=== PATIENT | female | born 1970 | race Two or more races ===

== ENCOUNTER 2017-07-13 13:23 | Emergency (ER) | payer MEDICAID ==
[~2017-07-13] VITALS: Ht 162.6 cm; Wt 60.0 kg
[2017-07-13] MEDS ORDERED: ONDANSETRON HCL 4MG/2ML VIAL IV STA (14:52)
[2017-07-13] MEDS ORDERED: KETOROLAC 30MG/ML VIAL IV STA (14:52)
[2017-07-13] MEDS ORDERED: FAMOTIDINE 20MG/2ML VIAL IV STA (14:52)
[2017-07-13] MEDS ORDERED: SODIUM CHLORIDE 0.9% 1,000 ML IV ONE (14:52)
[2017-07-13 15:25] LABS: BASOPHILS % 0.3 % (0.0-2.0); EOSINOPHILS % 0.1 % (0.0-5.0); HEMATOCRIT. 40.9 % (36.0-48.0); HEMOGLOBIN. 14.1 g/dL (12.0-16.0); LYMPHOCYTES % 13.1 % (20.0-50.0); MEAN CORPUSCULAR HEMOGLOBIN 32.1 pg (28.0-32.0); MEAN CORPUSCULAR VOLUME 92.8 fL (81.0-99.0); MEAN PLATELET VOLUME 9.3 fl (7.4-10.4); MONOCYTES % 4.1 % (2.0-8.0); NEUTROPHILS % 82.4 % (40.0-76.0); PLATELET 261 x1000/uL (130-400); RED BLOOD CELL COUNT 4.41 mill/uL (4.2-5.4); RED CELL DISTRIBUTION WIDTH 13.9 % (11.6-14.6)
[2017-07-13 15:29] LABS: CHLORIDE 103 mEq/L (98-107); INR 0.9; PROTHROMBIN TIME 9.8 sec (9.4-11.6)
[2017-07-13 15:30] LABS: HCG SCREEN NEGATIVE
[2017-07-13] MEDS ORDERED: ONDANSETRON HCL 4MG/2ML VIAL IV ONE (16:45)
[2017-07-13] MEDS ORDERED: ACETAMINOPHEN 325MG TABLET PO ONE (17:00)
[2017-07-13] MEDS ORDERED: MORPHINE SULFATE 4 MG/ML CPJ (NOT FOR IM USE) IV ONE (18:15)
[2017-07-13] MEDS ORDERED: METOCLOPRAMIDE HCL 10MG/2ML VIAL IV ONE (18:15)
[2017-07-13 18:46] VITALS: BP 118/55
[2017-07-13 19:42] LABS: CLARITY URINE CLOUDY (CLEAR); COLOR URINE YELLOW (YELLOW); KETONES URINE 3+ (NEGATIVE); LEUKOCYTE ESTERASE URINE NEGATIVE (NEGATIVE); NITRITE URINE POSITIVE (NEGATIVE); OCCULT BLOOD URINE TRACE (NEGATIVE); PROTEIN URINE TRACE (NEGATIVE); SPECIFIC GRAVITY URINE 1.027 (1.005-1.030)
== END 2017-07-13 19:20 | disposition home or self-care (01) ==
LOC: ER 13:50
DX: K80.10 Calculus of gallbladder with chronic cholecystitis without obstruction (principal); F17.200 Nicotine dependence, unspecified, uncomplicated
CPT/HCPCS: 36415; 76705; 80053; 81003; 83690; 84703; 85025; 85610; 93005; 96361; 96374; 96375; 96376; 99285; J1885; J2270; J2405; J2765; J3490; J7030; Z7610